=== PATIENT | female | born 1975 | race Caucasian/White ===

== ENCOUNTER 2022-10-02 04:00 | Day surgery (SDC) | payer OTHER ==
[2022-09-26 14:58] VITALS: BMI 31.4
[2022-10-02] MEDS ORDERED: HYDROmorphone HCl 2 MG/ML VIAL ONE (07:24)
[2022-10-02] MEDS ORDERED: PROPOFOL 100 ML ONE (07:24)
[2022-10-02] MEDS ORDERED: MIDAZOLAM HCL 2 MG/2 ML SINGLE DOSE VIAL ONE (07:25)
[2022-10-02] MEDS ORDERED: SUCCINYLCHOLINE CHLORIDE 200 MG/10 ML SYRINGE ONE (07:25)
[2022-10-02] MEDS ORDERED: THROMBIN (BOVINE) 5,000 UNIT VIAL TP ONE (07:30)
[2022-10-02] MEDS ORDERED: BACITRACIN ZINC 15 GM TUBE TOPICAL OINTMENT ONE (07:30)
[2022-10-02] MEDS ORDERED: OFLOXACIN 0.3% OPHTHALMIC SOLUTION 5 ML BOTTLE ONE (07:43)
[2022-10-02] MEDS ORDERED: ACETAMINOPHEN INJECTION 100 ML IVPB ONE (07:53)
[2022-10-02] MEDS ORDERED: DEXMEDETOMIDINE HCL 200 MCG/2 ML IVPB ONE (07:53)
[2022-10-02] MEDS ORDERED: ceFAZolin SODIUM 1 GM VIAL IVPB ONE (08:10)
[2022-10-02] MEDS ORDERED: DEXAMETHASONE SOD PHOSPHATE 4 MG/1 ML VIAL ONE ×3 (08:26)
[2022-10-02] MEDS ORDERED: ceFAZolin SODIUM 1 GM VIAL ONE ×2 (08:26)
[2022-10-02] MEDS ORDERED: LIDOCAINE HCL/PF 2% SDV 5ML VIAL ONE ×2 (08:26→08:34)
[2022-10-02] MEDS ORDERED: ONDANSETRON 4 MG/2 ML VIAL ONE (08:26)
[2022-10-02] MEDS ORDERED: EPINEPHrine/PF 1 MG/1 ML (1:1,000) AMPULE ONE (08:34)
[2022-10-02] MEDS ORDERED: PHENYLEPHRINE HCL 10 MG/1 ML SINGLE DOSE VIAL ONE (09:49)
[2022-10-02] MEDS ORDERED: oxyCODONE HCL 5 MG TABLET PO PRN (11:04)
[2022-10-02] MEDS ORDERED: LACTATED RINGERS SOLUTION 1,000 ML IV SCH (11:15)
[2022-10-02 13:12] VITALS: RESP 18
[2022-10-02 13:50] VITALS: BP 140/80; PULSE 106; TEMP 97.1
== END 2022-10-02 13:50 | disposition home or self-care (01) ==
LOC: JASU-SURG 04:00
PROVIDERS: ATTEND Otolaryngology
PROC: 09R Ear, Nose, Sinus, Replacement (ICD-10-PCS; principal; 2022-10-02 08:00)
DX: H80.81 Other otosclerosis, right ear (principal)
CPT/HCPCS: 81025; 88304-TC; 88311-TC; 94760; L8613